=== PATIENT | male | born 1955 | race Caucasian/White ===

== ENCOUNTER 2018-07-24 03:06 | Emergency (ER) | payer MEDICARE ==
[~2018-07-24] VITALS: Ht 175.3 cm; Wt 77.0 kg
[~2018-07-24 03:06] MED LIST: ANTIVERT25 MG PO; AVONEX30 MCG IM; BACLOFEN20 MG OR; DILAUDID2 MG PO; DILAUDID4 MG OR; FLEXERIL OR; FLOMAX0.4 M1 PO; LIORESAL10 MG/TAB PO; LISINOPRIL2.5 MG PO; NORCO1 TA1 PO; TEGRETOL PO; TEGRETOL100 MG OR; TORADOL PO; VITAMIN B-121000 MC1 SL; WELLBUTRI1 OR; WELLBUTRIN150 MG PO; ZOFRAN ODT4 MG OR
[2018-07-24] MEDS ORDERED: PRAMIPEXOLE1 MG PO (03:49)
[2018-07-24] MEDS ORDERED: ELETRIPTAN HYDR40 MG PO (03:49)
[2018-07-24] MEDS ORDERED: AUBAGIO14 MG PO (03:50)
[2018-07-24] MEDS ORDERED: BACLOFEN10 MG PO (03:51)
[2018-07-24] MEDS ORDERED: CARBAMAZEPIN200 MG PO (03:52)
[2018-07-24] MEDS ORDERED: MIRTAZAPINE15 MG PO (03:52)
[2018-07-24] MEDS ORDERED: TAMSULOSIN HCL0.4 MG PO (03:53)
[2018-07-24] MEDS ORDERED: IBUPROFEN600 MG PO (05:28)
[2018-07-24] MEDS ORDERED: ORPHENADRINE100 MG PO (05:28)
[2018-07-24 05:39] VITALS: BP 151/88
== END 2018-07-24 05:50 | disposition home or self-care (01) ==
LOC: ED 03:06
PROC: 2W3BXYZ Immobilization of Left Upper Arm using Other Device (ICD-10-PCS; principal; 2018-07-24)
DX: S46.012A Strain of muscle(s) and tendon(s) of the rotator cuff of left shoulder, initial encounter (principal); M25.512 Pain in left shoulder; S30.1XXA Contusion of abdominal wall, initial encounter; W18.30XA Fall on same level, unspecified, initial encounter; Y92.009 Unspecified place in unspecified non-institutional (private) residence as the place of occurrence of the external cause; N20.0 Calculus of kidney; K57.30 Diverticulosis of large intestine without perforation or abscess without bleeding

== ENCOUNTER 2018-08-01 07:51 | Emergency (ER) | payer MEDICARE ==
[~2018-08-01] VITALS: Ht 175.3 cm; Wt 80.0 kg
[~2018-08-01 07:51] MED LIST changes: +AUBAGIO14 MG PO; +BACLOFEN10 MG PO; +CARBAMAZEPIN200 MG PO; +ELETRIPTAN HYDR40 MG PO; +IBUPROFEN600 MG PO; +MIRTAZAPINE15 MG PO; +ORPHENADRINE100 MG PO; +PRAMIPEXOLE1 MG PO; +TAMSULOSIN HCL0.4 MG PO
[2018-08-01] MEDS ORDERED: ONDANSETRON HCL4 MG PO (09:22)
[2018-08-01] MEDS ORDERED: METHOCARBAMOL500 MG PO (09:23)
[2018-08-01] MEDS ORDERED: CYCLOBENZAPR10 MG PO (09:24)
[2018-08-01] MEDS ORDERED: MEDDOSEPAK PO (09:26)
[2018-08-01] MEDS ORDERED: FLEXERIL PO (09:26)
[2018-08-01] MEDS ORDERED: DICLOFENAC50 MG PO (09:26)
[2018-08-01 10:40] VITALS: BP 176/102
== END 2018-08-01 09:53 | disposition home or self-care (01) ==
LOC: ED 07:51
DX: M54.2 Cervicalgia (principal); X50.1XXA Overexertion from prolonged static or awkward postures, initial encounter; Y93.84 Activity, sleeping; Y92.003 Bedroom of unspecified non-institutional (private) residence as the place of occurrence of the external cause; G35 Multiple sclerosis; M50.30 Other cervical disc degeneration, unspecified cervical region
CPT/HCPCS: J2060

== ENCOUNTER 2018-12-07 06:36 | Emergency (ER) | payer MEDICARE ==
[~2018-12-07] VITALS: Ht 175.3 cm; Wt 72.7 kg
[~2018-12-07 06:36] MED LIST changes: +CYCLOBENZAPR10 MG PO; +DICLOFENAC50 MG PO; +FLEXERIL PO; +MEDDOSEPAK PO; +METHOCARBAMOL500 MG PO; +ONDANSETRON HCL4 MG PO
[2018-12-07 07:12] LABS: HEMATOCRIT 35.1 % (39.0-50.0); HEMOGLOBIN 11.3 g/dl (14.0-18.0); IMMATURE GRANULOCYTES 0.4 % (0.0-5.0); MEAN CELL VOLUME 97.5 fL CALC (80.0-100.0); MEAN CORPUSCULAR HGB 31.4 pG CALC (26.0-32.0); MEAN CORPUSCULAR HGB CONC 32.2 g/L CALC (32.0-36.0); NEUT# 6.46 thou/uL (1.82-7.42); RED BLOOD COUNT 3.6 mill/uL (4.70-6.10); RED CELL DISTRI WIDTH 13.5 % (11.5-15.5)
[2018-12-07 07:28] LABS: ALKALINE PHOSPHATASE 94 u/l (38-126); ANION GAP 10 (6-22 (CALC)); BILIRUBIN, TOTAL 0.5 mg/dL (0.0-1.4); BUN 30 mg/dL (8-23); BUN/CREATININE RATIO 34 (12-20 (CALC)); CARBON DIOXIDE 27 mmol/l (22-30); CHLORIDE 106 mmol/l (95-108); CREATININE 0.9 mg/dL (0.7-1.3); GFR > 60 ML/MIN (>=60 (CALC)); GFR FOR AFR.AMER. > 60 ML/MIN (>=60 (CALC)); POTASSIUM 4.3 mmol/l (3.5-5.1); SGOT/AST 34 u/l (19-48); SODIUM 139 mmol/l (137-146); TOTAL PROTEIN 6.5 g/dL (6.3-8.2)
[2018-12-07 07:39] LABS: MYOGLOBIN 121 ng/mL (0 - 121)
[2018-12-07 09:39] LABS: URINE BILIRUBIN - DIPSTICK NEGATIVE (NEGATIVE); URINE BLOOD DIPSTICK NEGATIVE (NEGATIVE); URINE COLOR YELLOW; URINE GLUCOSE - DIPSTICK NEGATIVE (NEGATIVE); URINE KETONE NEGATIVE (NEGATIVE); URINE LEUK ESTERASE NEGATIVE (NEGATIVE); URINE NITRITE - DIPSTICK NEGATIVE (Negative); URINE PH 6.5 (4.5-8.0); URINE PROTEIN - DIPSTICK NEGATIVE (NEG-TRACE); URINE UROBILINOGEN - DIPSTICK 0.2 E.U./dL (0.2)
[2018-12-07 11:35] VITALS: BP 182/97
== END 2018-12-07 11:35 | disposition home or self-care (01) ==
LOC: ED 06:36
PROVIDERS: Emergency Medicine
DX: S40.012A Contusion of left shoulder, initial encounter (principal); S16.1XXA Strain of muscle, fascia and tendon at neck level, initial encounter; W06.XXXA Fall from bed, initial encounter; Y92.003 Bedroom of unspecified non-institutional (private) residence as the place of occurrence of the external cause; Z98.890 Other specified postprocedural states; R51 Headache

== ENCOUNTER 2018-12-10 00:52 | Emergency (ER) | payer MEDICARE ==
[~2018-12-10] VITALS: Ht 175.3 cm; Wt 85.1 kg
[2018-12-10 01:35] LABS: HEMATOCRIT 35.5 % (39.0-50.0); HEMOGLOBIN 11.5 g/dl (14.0-18.0); IMMATURE GRANULOCYTES 0.4 % (0.0-5.0); MEAN CELL VOLUME 97.3 fL CALC (80.0-100.0); MEAN CORPUSCULAR HGB 31.5 pG CALC (26.0-32.0); MEAN CORPUSCULAR HGB CONC 32.4 g/L CALC (32.0-36.0); NEUT# 6.15 thou/uL (1.82-7.42); RED BLOOD COUNT 3.65 mill/uL (4.70-6.10); RED CELL DISTRI WIDTH 13.8 % (11.5-15.5)
[2018-12-10 01:53] LABS: ALBUMIN 4.1 g/dL (3.2-5.0); BILIRUBIN, TOTAL 0.4 mg/dL (0.0-1.4); CREATININE 1.5 mg/dL (0.7-1.3); POTASSIUM 4.5 mmol/l (3.5-5.1); TOTAL PROTEIN 6.5 g/dL (6.3-8.2)
[2018-12-10 01:59] LABS: PROTHROMBIN TIME 10.2 SECONDS (9.0-12.5)
[2018-12-10 04:51] LABS: URINE BILIRUBIN - DIPSTICK NEGATIVE (NEGATIVE); URINE BLOOD DIPSTICK NEGATIVE (NEGATIVE); URINE COLOR YELLOW; URINE GLUCOSE - DIPSTICK NEGATIVE (NEGATIVE); URINE KETONE NEGATIVE (NEGATIVE); URINE LEUK ESTERASE NEGATIVE (NEGATIVE); URINE NITRITE - DIPSTICK NEGATIVE (Negative); URINE PROTEIN - DIPSTICK NEGATIVE (NEG-TRACE); URINE SPECIFIC GRAVITY 1.025; URINE UROBILINOGEN - DIPSTICK 0.2 E.U./dL (0.2)
[2018-12-10 04:56] LABS: COCAINE NEGATIVE (NEGATIVE); METHADONE NEGATIVE (NEGATIVE); TETRAHYDROCANNABIONOL NEGATIVE (NEGATIVE)
[2018-12-10 04:57] LABS: BARBITURATES NEGATIVE (NEGATIVE); OXCYCODONE NEGATIVE (NEGATIVE); TRICYLIC ANTIDEPRESSANTS NEGATIVE (NEGATIVE)
[2018-12-10 06:45] VITALS: BP 133/71
[2018-12-10] MEDS ORDERED: VALIUM5 MG PO (07:14)
[2018-12-10] MEDS ORDERED: NORCO1 TA2 PO (07:16)
== END 2018-12-10 06:45 | disposition short-term general hospital (02) ==
LOC: ED 00:52
PROVIDERS: Emergency Medicine
DX: R41.82 Altered mental status, unspecified (principal); E86.0 Dehydration; G35 Multiple sclerosis; R29.6 Repeated falls

== ENCOUNTER 2019-04-03 21:11 | Emergency (ER) | payer MEDICARE ==
[~2019-04-03] VITALS: Ht 175.3 cm; Wt 71.4 kg
[~2019-04-03 21:11] MED LIST changes: +NORCO1 TA2 PO; +VALIUM5 MG PO
[2019-04-03 22:08] LABS: HEMATOCRIT 35.3 % (39.0-50.0); HEMOGLOBIN 11.9 g/dl (14.0-18.0); IMMATURE GRANULOCYTES 0.4 % (0.0-5.0); MEAN CELL VOLUME 92.7 fL CALC (80.0-100.0); MEAN CORPUSCULAR HGB 31.2 pG CALC (26.0-32.0); MEAN CORPUSCULAR HGB CONC 33.7 g/L CALC (32.0-36.0); NEUT# 5.49 thou/uL (1.82-7.42); RED BLOOD COUNT 3.81 mill/uL (4.70-6.10); RED CELL DISTRI WIDTH 11.9 % (11.5-15.5)
[2019-04-03 22:27] LABS: ALBUMIN 4.2 g/dL (3.2-5.0); ALKALINE PHOSPHATASE 107 u/l (38-126); AMYLASE 74 u/l (30-110); ANION GAP 13 (6-22 (CALC)); BUN 30 mg/dL (8-23); BUN/CREATININE RATIO 33 (12-20 (CALC)); CARBON DIOXIDE 29 mmol/l (22-30); CHLORIDE 105 mmol/l (95-108); CREATININE 0.9 mg/dL (0.7-1.3); GFR > 60 ML/MIN (>=60 (CALC)); GFR FOR AFR.AMER. > 60 ML/MIN (>=60 (CALC)); LIPASE 97 u/l (23-300); SGOT/AST 30 u/l (19-48); SODIUM 142 mmol/l (137-146); TOTAL PROTEIN 6.7 g/dL (6.3-8.2)
[2019-04-03 22:30] LABS: BILIRUBIN, TOTAL 0.4 mg/dL (0.0-1.4)
[2019-04-03 22:43] LABS: URINE BILIRUBIN - DIPSTICK NEGATIVE (NEGATIVE); URINE BLOOD DIPSTICK NEGATIVE (NEGATIVE); URINE COLOR YELLOW; URINE GLUCOSE - DIPSTICK NEGATIVE (NEGATIVE); URINE KETONE NEGATIVE (NEGATIVE); URINE LEUK ESTERASE NEGATIVE (NEGATIVE); URINE NITRITE - DIPSTICK NEGATIVE (Negative); URINE PROTEIN - DIPSTICK NEGATIVE (NEG-TRACE); URINE SPECIFIC GRAVITY 1.025; URINE UROBILINOGEN - DIPSTICK 0.2 E.U./dL (0.2)
[2019-04-04] MEDS ORDERED: NAPROXEN500 MG PO (00:29)
[2019-04-04 00:32] VITALS: BP 179/97
[2019-04-04] MEDS ORDERED: FLEXERIL PO (00:32)
== END 2019-04-04 00:40 | disposition home or self-care (01) ==
LOC: ED 21:11
PROVIDERS: Emergency Medicine
DX: S73.102A Unspecified sprain of left hip, initial encounter (principal); X58.XXXA Exposure to other specified factors, initial encounter; Z87.442 Personal history of urinary calculi

== ENCOUNTER 2019-09-01 | Emergency (ER) | payer MEDICARE ==
[~2019-09-01] MED LIST changes: +NAPROXEN500 MG PO
[2019-09-01 05:13] LABS: HEMATOCRIT 37.5 % (39.0-50.0); HEMOGLOBIN 12.5 g/dl (14.0-18.0); IMMATURE GRANULOCYTES 0.5 % (0.0-5.0); MEAN CELL VOLUME 95.2 fL CALC (80.0-100.0); MEAN CORPUSCULAR HGB 31.7 pG CALC (26.0-32.0); MEAN CORPUSCULAR HGB CONC 33.3 g/L CALC (32.0-36.0); NEUT# 5.14 thou/uL (1.82-7.42); RED BLOOD COUNT 3.94 mill/uL (4.70-6.10); RED CELL DISTRI WIDTH 12.5 % (11.5-15.5)
[2019-09-01 05:39] LABS: ALKALINE PHOSPHATASE 89 u/l (38-126); BILIRUBIN, TOTAL 0.3 mg/dL (0.0-1.4); BUN 24 mg/dL (8-23); BUN/CREATININE RATIO 19 (12-20 (CALC)); CHLORIDE 110 mmol/l (95-108); CREATININE 1.2 mg/dL (0.7-1.3); GFR > 60 ML/MIN (>=60 (CALC)); GFR FOR AFR.AMER. > 60 ML/MIN (>=60 (CALC)); SGOT/AST 27 u/l (19-48); SODIUM 141 mmol/l (137-146); TOTAL PROTEIN 6.7 g/dL (6.3-8.2)
[2019-09-01 05:43] LABS: ANION GAP 14 (6-22 (CALC)); CARBON DIOXIDE 21 mmol/l (22-30); POTASSIUM 3.5 mmol/l (3.5-5.1)
[2019-09-01] MEDS ORDERED: KEFLEX500 MG PO (08:32)
== END 2019-09-01 09:30 | disposition home or self-care (01) ==
PROVIDERS: Emergency Medicine
PROC: 0HQ3XZZ Repair Left Ear Skin, External Approach (ICD-10-PCS; principal; 2019-09-01)
DX: S01.312A Laceration without foreign body of left ear, initial encounter (principal); S00.83XA Contusion of other part of head, initial encounter; G35 Multiple sclerosis; W18.39XA Other fall on same level, initial encounter; Y92.003 Bedroom of unspecified non-institutional (private) residence as the place of occurrence of the external cause
CPT/HCPCS: J2060

== ENCOUNTER 2019-10-07 | Emergency (ER) | payer MEDICARE ==
[~2019-10-07] MED LIST changes: +KEFLEX500 MG PO
[2019-10-07 16:49] LABS: HEMATOCRIT 37.5 % (39.0-50.0); HEMOGLOBIN 12.6 g/dl (14.0-18.0); IMMATURE GRANULOCYTES 0.4 % (0.0-5.0); MEAN CELL VOLUME 92.6 fL CALC (80.0-100.0); MEAN CORPUSCULAR HGB 31.1 pG CALC (26.0-32.0); MEAN CORPUSCULAR HGB CONC 33.6 g/L CALC (32.0-36.0); NEUT# 7.04 thou/uL (1.82-7.42); RED BLOOD COUNT 4.05 mill/uL (4.70-6.10); RED CELL DISTRI WIDTH 12.3 % (11.5-15.5)
[2019-10-07 16:58] LABS: URINE BILIRUBIN - DIPSTICK NEGATIVE (NEGATIVE); URINE BLOOD DIPSTICK NEGATIVE (NEGATIVE); URINE COLOR YELLOW; URINE GLUCOSE - DIPSTICK NEGATIVE (NEGATIVE); URINE KETONE NEGATIVE (NEGATIVE); URINE LEUK ESTERASE NEGATIVE (NEGATIVE); URINE NITRITE - DIPSTICK NEGATIVE (Negative); URINE PH 5.5 (4.5-8.0); URINE PROTEIN - DIPSTICK NEGATIVE (NEG-TRACE); URINE SPECIFIC GRAVITY 1.015; URINE UROBILINOGEN - DIPSTICK 0.2 E.U./dL (0.2)
[2019-10-07 17:11] LABS: ALBUMIN 4.5 g/dL (3.2-5.0); ALKALINE PHOSPHATASE 87 u/l (38-126); BUN 27 mg/dL (8-23); BUN/CREATININE RATIO 20 (12-20 (CALC)); CHLORIDE 101 mmol/l (95-108); CREATININE 1.3 mg/dL (0.7-1.3); ETHYL ALCOHOL 0 mg/dl (0-30); GFR 55 ML/MIN (>=60 (CALC)); GFR FOR AFR.AMER. > 60 ML/MIN (>=60 (CALC)); LIPASE 47 u/l (23-300); SGOT/AST 41 u/l (19-48); SODIUM 140 mmol/l (137-146); TOTAL PROTEIN 7.1 g/dL (6.3-8.2)
[2019-10-07 17:12] LABS: ANION GAP 11 (6-22 (CALC)); BILIRUBIN, TOTAL 0.5 mg/dL (0.0-1.4); CARBON DIOXIDE 31 mmol/l (22-30)
[2019-10-07 17:22] LABS: BARBITURATES NEGATIVE (NEGATIVE); COCAINE NEGATIVE (NEGATIVE); METHADONE NEGATIVE (NEGATIVE); OXCYCODONE NEGATIVE (NEGATIVE); TETRAHYDROCANNABIONOL NEGATIVE (NEGATIVE); TRICYLIC ANTIDEPRESSANTS NEGATIVE (NEGATIVE)
[2019-10-07] MEDS ORDERED: ZOFRAN4 M1 PO (17:41)
== END 2019-10-07 17:55 | disposition home or self-care (01) ==
DX: R45.1 Restlessness and agitation (principal); G35 Multiple sclerosis; R11.2 Nausea with vomiting, unspecified

== ENCOUNTER 2019-12-09 11:00 | Emergency (ER) | payer MEDICARE ==
[~2019-12-09 11:00] MED LIST changes: +ZOFRAN4 M1 PO
[2019-12-09 11:41] LABS: HEMATOCRIT 39.6 % (39.0-50.0); HEMOGLOBIN 13.2 g/dl (14.0-18.0); IMMATURE GRANULOCYTES 0.4 % (0.0-5.0); MEAN CORPUSCULAR HGB 30.3 pG CALC (26.0-32.0); MEAN CORPUSCULAR HGB CONC 33.3 g/dL CAL (32.0-36.0); NEUT# 10.09 thou/uL (1.82-7.42); RED BLOOD COUNT 4.35 mill/uL (4.70-6.10)
[2019-12-09 12:08] LABS: PROTHROMBIN TIME 10.5 SECONDS (9.0-12.5)
[2019-12-09 12:11] LABS: ALBUMIN 4.5 g/dL (3.2-5.0); ALKALINE PHOSPHATASE 82 u/l (38-126); BILIRUBIN, TOTAL 0.6 mg/dL (0.0-1.4); BUN 53 mg/dL (8-23); CHLORIDE 104 mmol/l (95-108); ETHYL ALCOHOL 0 mg/dl (0-30); LIPASE 133 u/l (23-300); POTASSIUM 3.6 mmol/l (3.5-5.1); SODIUM 140 mmol/l (137-146); TOTAL PROTEIN 7.2 g/dL (6.3-8.2)
[2019-12-09 12:15] LABS: ANION GAP 17 (6-22 (CALC)); BUN/CREATININE RATIO 19 (12-20 (CALC)); CARBON DIOXIDE 23 mmol/l (22-30); CREATININE 2.8 mg/dL (0.7-1.3); GFR 23 ML/MIN (>=60 (CALC)); GFR FOR AFR.AMER. 28 ML/MIN (>=60 (CALC)); SGOT/AST 126 u/l (19-48)
[2019-12-09 13:41] LABS: URINE BILIRUBIN - DIPSTICK NEGATIVE (NEGATIVE); URINE BLOOD DIPSTICK TRACE-INTACT (NEGATIVE); URINE COLOR YELLOW; URINE GLUCOSE - DIPSTICK NEGATIVE (NEGATIVE); URINE KETONE NEGATIVE (NEGATIVE); URINE LEUK ESTERASE NEGATIVE (NEGATIVE); URINE NITRITE - DIPSTICK NEGATIVE (Negative); URINE PH 5.5 (4.5-8.0); URINE PROTEIN - DIPSTICK NEGATIVE (NEG-TRACE); URINE UROBILINOGEN - DIPSTICK 0.2 E.U./dL (0.2)
[2019-12-09 13:46] LABS: BARBITURATES NEGATIVE (NEGATIVE); COCAINE NEGATIVE (NEGATIVE); METHADONE NEGATIVE (NEGATIVE); OXCYCODONE NEGATIVE (NEGATIVE); TETRAHYDROCANNABIONOL NEGATIVE (NEGATIVE); TRICYLIC ANTIDEPRESSANTS NEGATIVE (NEGATIVE)
[2019-12-09 13:53] VITALS: BP 100/70
== END 2019-12-09 13:40 | disposition short-term general hospital (02) ==
LOC: ED 11:00
PROC: 0T9B70Z Drainage of Bladder with Drainage Device, Via Natural or Artificial Opening (ICD-10-PCS; principal; 2019-12-09)
DX: I21.4 Non-ST elevation (NSTEMI) myocardial infarction (principal); M62.82 Rhabdomyolysis; N17.9 Acute kidney failure, unspecified; E86.0 Dehydration; R45.1 Restlessness and agitation; S00.83XA Contusion of other part of head, initial encounter; S50.812A Abrasion of left forearm, initial encounter; G35 Multiple sclerosis; W19.XXXA Unspecified fall, initial encounter; Y92.59 Other trade areas as the place of occurrence of the external cause
CPT/HCPCS: J2060

== ENCOUNTER 2019-12-21 02:24 | Emergency (ER) | payer MEDICARE ==
[2019-12-21] MEDS ORDERED: ADLT ASA LOW81 MG PO (02:53)
[2019-12-21] MEDS ORDERED: ATORVASTATIN CA40 MG PO (02:53)
[2019-12-21] MEDS ORDERED: BACLOFEN10 MG PO (02:54)
[2019-12-21] MEDS ORDERED: BUPROPN HCL300 MG PO (02:54)
[2019-12-21] MEDS ORDERED: CARBAMAZEPIN200 M1 PO (02:55)
[2019-12-21] MEDS ORDERED: COLCHICINE0.6 M2 PO (02:56)
[2019-12-21] MEDS ORDERED: PEPCID40 MG PO (02:56)
[2019-12-21] MEDS ORDERED: ENDOCET1 TAB PO (02:57)
[2019-12-21] MEDS ORDERED: LASIX 40 MG TAB40 MG PO (02:57)
[2019-12-21] MEDS ORDERED: LOPRESSOR 550 MG/TAB PO (02:57)
[2019-12-21] MEDS ORDERED: POT CHLORIDE10 ME5 PO (02:58)
[2019-12-21] MEDS ORDERED: PRAMIPEXOLE DIHY1 MG PO (02:58)
[2019-12-21] MEDS ORDERED: MIRALAX3350 NF PO (02:58)
[2019-12-21] MEDS ORDERED: PRAMIPEXOLE DI0.5 MG PO (03:00)
[2019-12-21] MEDS ORDERED: TAMSULOSIN HCL0.4 MG PO (03:00)
[2019-12-21] MEDS ORDERED: LISINOP/HCTZ1 TAB PO (03:00)
[2019-12-21 03:01] LABS: HEMATOCRIT 34.3 % (39.0-50.0); IMMATURE GRANULOCYTES 0.5 % (0.0-5.0); MEAN CELL VOLUME 94.2 fL CALC (80.0-100.0); MEAN CORPUSCULAR HGB 30.5 pG CALC (26.0-32.0); MEAN CORPUSCULAR HGB CONC 32.4 g/dL CAL (32.0-36.0); NEUT# 12.21 thou/uL (1.82-7.42); RED BLOOD COUNT 3.64 mill/uL (4.70-6.10); RED CELL DISTRI WIDTH 13.7 % (11.5-15.5)
[2019-12-21 03:02] LABS: HEMOGLOBIN 11.1 g/dl (14.0-18.0)
[2019-12-21 03:18] LABS: ALBUMIN 3.6 g/dL (3.2-5.0); ALKALINE PHOSPHATASE 83 u/l (38-126); ANION GAP 10 (6-22 (CALC)); BILIRUBIN, TOTAL 0.4 mg/dL (0.0-1.4); BUN 19 mg/dL (8-23); BUN/CREATININE RATIO 16 (12-20 (CALC)); CARBON DIOXIDE 31 mmol/l (22-30); CHLORIDE 100 mmol/l (95-108); CREATININE 1.2 mg/dL (0.7-1.3); GFR > 60 ML/MIN (>=60 (CALC)); GFR FOR AFR.AMER. > 60 ML/MIN (>=60 (CALC)); LIPASE 55 u/l (23-300); POTASSIUM 3.8 mmol/l (3.5-5.1); SGOT/AST 29 u/l (19-48); SODIUM 137 mmol/l (137-146); TOTAL PROTEIN 6.1 g/dL (6.3-8.2)
[2019-12-21 04:41] LABS: URINE BILIRUBIN - DIPSTICK NEGATIVE (NEGATIVE); URINE BLOOD DIPSTICK NEGATIVE (NEGATIVE); URINE COLOR YELLOW; URINE GLUCOSE - DIPSTICK NEGATIVE (NEGATIVE); URINE KETONE NEGATIVE (NEGATIVE); URINE LEUK ESTERASE NEGATIVE (NEGATIVE); URINE NITRITE - DIPSTICK NEGATIVE (Negative); URINE PROTEIN - DIPSTICK NEGATIVE (NEG-TRACE); URINE UROBILINOGEN - DIPSTICK 0.2 E.U./dL (0.2)
[2019-12-21 06:07] VITALS: BP 136/72
== END 2019-12-21 06:15 | disposition short-term general hospital (02) ==
LOC: ED 02:24
PROVIDERS: Emergency Medicine
DX: R07.9 Chest pain, unspecified (principal); R79.89 Other specified abnormal findings of blood chemistry; D72.829 Elevated white blood cell count, unspecified; G35 Multiple sclerosis; Z95.1 Presence of aortocoronary bypass graft